=== PATIENT | male | born 1980 | race Caucasian/White ===

== ENCOUNTER 2023-05-28 18:59 | Emergency (ER) | payer OTHER, SELFPAY ==
[2023-05-28] VITALS (17 sets, daily range): BP systolic 86–133; BP diastolic 65–95; PULSE 86–114; RESP 17–24; TEMP 36.9–37.1; O2SAT 94–100; BMI 24.5
--- NOTE | 2023-05-28 19:21 | ED.GENADULT ---
HPI - General Adult General Chief complaint: Fever Stated complaint: fever, weakness, bacterial infection Time Seen by Provider: 05/28/23 19:13 History of Present Illness HPI narrative: This 43-year-old male comes here from [facility] because of generalized malaise and fever over the past 4 days or so. He was seen in [facility] Emergency Room last evening at which time nasal pharyngeal swab Ng returns negative for COVID, influenza, and RSV. He has had fevers with myalgias and a cough. He does smoke a half a pack a day. At the clinic he had a chest x-ray which is negative. His blood was checked and returns with a white blood cell count a bit greater than 15,000 with a left shift. An IV was established at which time he had vasovagal syncope. He did receive a L of fluids there. He is sent here because the doctor there thought that he was not looking good enough to go home. The patient was bit by a dog in his right hand about 5 days ago and it was soon after this that he started having symptoms. He did not have a repair of this wound on his hand. There is no particular erythema or drainage or other sign of infection of the site of this wound. Related Data Home Medications Medication Instructions Recorded Confirmed dextroamphetamine-amphetamine 30 30 mg PO TID 05/28/23 05/28/23 mg tablet (Adderall) Allergies Allergy/AdvReac Type Severity Reaction Status Date / Time No Known Drug Allergies Allergy Verified 05/28/23 16:14 Review of Systems Status of ROS: Reports: 10 or more systems reviewed and unremarkable except as noted in History and below Narrative: Constitutional: No weight gain or loss. He reports fevers. Eyes: No discharge. No vision changes. HENT: No congestion, no sore throat, no ear pain. Cardiovascular: No chest pain, no palpitations. Respiratory: No shortness of breath, no wheezes. He does have a cough. Gastrointestinal: No abdominal pain, no vomiting, no diarrhea. Genitourinary: No dysuria, no hematuria. Musculoskeletal: Normal range of motion. Dog bite to the thenar aspect of the palm of his right hand. Skin: No rashes, no pruritis. Neurological: No dizziness, weakness, sensory change, speech change. Endo/Heme/Allergies: No bruising or bleeding. No polydipsia. Pysch: no suicidality, no anxiety, no insomnia. All other systems reviewed and are negative. [facility] Medical History (Updated 05/28/23 @ 20:08 by Du James MD) Fever ?R50.9 - Fever, unspecified (ICD-10) Social History Smoking Status: Current every day smoker Second hand tobacco smoke exposure: Yes How often do you have a drink containing alcohol: never How often do you have six or more drinks on one occasion: Never AUDIT-C Alcohol total score: 0 Non-prescribed substance use: denies use Exam Narrative: Exam Narrative: Constitutional: Well-developed, well-nourished. He appears to feel poorly. HEENT: Normocephalic, atraumatic. Neck: Normal range of motion. Nontender. Supple. Heart: Regular. No murmurs. Tachycardia, rate 105. Intact distal pulses. Lungs: Clear to auscultation. No chest discomfort. No wheezes, rhonchi, or rales. Abdomen: Normal bowel sounds. Nontender. No rebound tenderness. Genitalia: Deferred. Back: No midline tenderness. Normal range of motion. Extremities: Normal range of motion. 2 cm laceration on the thenar aspect of the palm of his right hand from a dog bite that occurred for 5 days ago. No purulent drainage or surrounding erythema. Skin: Intact. No rash. Warm. No erythema or pallor. Neurologic: No altered sensation. No weakness. Alert and oriented. Psychiatric: No suicidality. No anxiety or depression. No insomnia. Nursing notes and vitals signs are reviewed. Const: Vital Signs, click to edit/add: Vital Signs - 24 hr 05/28/23 19:00 05/28/23 19:09 Temperature 98.4 F 98.4 F Pulse Rate [Right Pulse Oximeter] 105 H 105 H Respiratory Rate 22 22 Blood Pressure [Ri ght Arm] 105/67 Blood Pressure [Ri ght Upper Arm] 103/65 Pulse Oximetry 100 100 Oxygen Delivery Me thod Room Air Room Air Course Vital Signs Vital signs: Initial Vital Signs Temperature 98.4 F 05/28/23 19:00 Temperature Source Temporal Artery Scan 05/28/23 19:00 Pulse Rate 105 H 05/28/23 19:00 Respiratory Rate 22 05/28/23 19:00 Respiratory Effort Normal, Spontaneous, Non-Labored 05/28/23 19:00 Respiratory Depth Normal 05/28/23 19:00 Respiratory Pattern Normal 05/28/23 19:00 Blood Pressure 105/67 05/28/23 19:00 Blood Pressure Mean 79 05/28/23 19:00 Blood Pressure Position Sitting 05/28/23 19:00 Pulse Oximetry 100 05/28/23 19:00 Oxygen Delivery Method Room Air 05/28/23 19:00 Sepsis Recent Fever Within 48 Hours Yes 05/28/23 19:00 Sepsis New/Unexplained Change in Mental Status No 05/28/23 19:00 Sepsis Action Taken by Nursing No Action Required 05/28/23 19:00 Vital Signs Temperature 98.4 F 05/28/23 19:00 Pulse Rate 105 H 05/28/23 19:00 Respiratory Rate 22 05/28/23 19:00 Blood Pressure 105/67 05/28/23 19:00 Pulse Oximetry 100 05/28/23 19:00 Oxygen Delivery Method Room Air 05/28/23 19:00 Temperature 98.4 F 05/28/23 19:09 Pulse Rate 105 H 05/28/23 19:09 Respiratory Rate 22 05/28/23 19:09 Blood Pressure 103/65 05/28/23 19:09 Pulse Oximetry 100 05/28/23 19:09 Oxygen Delivery Method Room Air 05/28/23 19:09 Medications Administered Medications: Generic Name Dose Route Start Last Admin Trade Name Freq PRN Reason Stop Dose Admin Sodium Chloride 1,000 mls @ 1,000 mls/hr 05/28/23 19:45 05/28/23 19:38 0.9 % Sodium Chloride 1000 Ml IV 05/28/23 20:44 1,000 mls/hr .Q1H WEI Administration Discontinued Medications Generic Name Dose Route Start Last Admin Trade Name Freq PRN Reason Stop Dose Admin Piperacillin Sod/Tazobactam 100 mls @ 200 mls/hr 05/28/23 19:18 05/28/23 19:39 Sod 3.375 gm/ Sodium Chloride IVPB 05/28/23 19:19 200 mls/hr ONCE ONE Administration Medical Decision Making MDM Narrative Medical decision making narrative: This patient is sent here for further evaluation and treatment from a clinic visit that he was at prior to arrival. He arrives here with normal temperature but reports having fevers over the last 5 days. He does arrive with pulse at 105 beats per minute and blood pressure at 103/65. An IV was established where he received a L of normal saline. Lab results were acquired at the clinic but this did not include blood culture or lactate level. These labs were ordered along with a dose of Zosyn to be administered after cultures are acquired. His lactate returned significantly elevated at 7.5. The patient did receive a L of normal saline at clinic just prior to arrival. He received 2 more L which is close to 30 milliliters/kilogram rehydration. This patient would benefit from inpatient evaluation and treatment but no beds are available currently both here and in surrounding hospitals. Care for this patient will be transferred to the [facility] physician for further evaluation and treatment. Lab Data Labs: Lab Results 05/28/23 Range/Units 19:46 Lactate 7.5 H* (0.5-1.9) mmol/L Discharge Plan Discharge Clinical Impression: Fever, Sepsis Prescriptions: No Action dextroamphetamine-amphetamine [Adderall] 30 mg tablet 30 mg PO TID Rx Instructions: administer doses at least 4-6 hours apart Follow Up/Referrals: Provider,Not a Local [Primary Care Provider] -
[2023-05-28] MEDS: 0.9 % SODIUM CHLORIDE 1000 ml 1,000 ML IV ×2 (19:38→20:00)
[2023-05-28] MEDS: PIPERACILLIN/TAZOBACTAM 3.375 GM in 0.9 % SODIUM CHLORIDE Mini-bag 100 ML IVPB (19:39)
[2023-05-28 19:56] LABS: Lactate* 7.5 mmol/L (0.5-1.9)
[2023-05-28] MEDS: ONDANSETRON 2 MG/ML inj 4 MG IVP (20:15)
--- NOTE | 2023-05-28 20:21 | CRLHL7_ITS ---
For Patients: As a result of the Cures Act, medical imaging exams and procedure reports are released immediately into your electronic medical record. You may view this report before your referring provider. If you have questions, please contact your health care provider. INDICATION: Back pain, fever, chills, abdominal pain, fever chills TECHNIQUE: CT Abdomen and pelvis with i.v. contrast. Coronal and sagittal reformats were obtained. CONTRAST: 95 mL Isovue 370 COMPARISON: None FINDINGS: Liver: Unremarkable. Spleen: Unremarkable. Pancreas: Unremarkable. Gallbladder: Mild nonspecific gallbladder wall edema is noted. Kidney: There is a punctate 1 mm stone seen in the lower pole of the left kidney. Adrenal: Unremarkable. Bowel: Moderate diverticulosis of the sigmoid colon is present with no evidence of diverticulitis. The appendix is best seen on coronal images 55-69. The appendix is normal in appearance and size. Vascular: Unremarkable. Lymph: Unremarkable. Peritoneum: Unremarkable. No pneumoperitoneum is seen. No significant ascites is noted. Pelvis: Unremarkable. Soft tissue: Unremarkable. Bone: Unremarkable for age. IMPRESSION: 1. Mild nonspecific gallbladder wall edema is noted. Dictated by Moises Lugo MD @ 05/28/2023 10:13:03 PM Please note that all CT scans at this facility use dose modulation, iterative reconstruction, and/or weight-based dosing when appropriate to reduce radiation dose to as low as reasonably achievable. Dictated by: Moises Lugo MD @ 05/28/2023 22:15:55 (Electronically Signed)
--- NOTE | 2023-05-28 20:21 | CRLHL7_ITS ---
For Patients: As a result of the Century Cures Act, medical imaging exams and procedure reports are released immediately into your electronic medical record. You may view this report before your referring provider. If you have questions, please contact your health care provider. INDICATION: Back chest pain, fever, chills, abdominal pain, back pain TECHNIQUE: CT chest with i.v. contrast using pulmonary angiographic technique. Coronal and sagittal reformats were obtained. CONTRAST: 95 mL Isovue 370 COMPARISON: None FINDINGS: Cardiovascular: The pulmonary arteries are unremarkable in enhancement with no evidence of acute pulmonary embolism. The heart has an unremarkable appearance and size. No sign of aneurysm in the thoracic aorta. Mediastinum: No mass or adenopathy seen. Lung: Dependent subpleural ground-glass opacities are present bilaterally. Mild subpleural septal thickening seen in the lower lung zones. Mild peribronchial cuffing is seen in the lower lobes bilaterally. Pleura and pericardium: No sign of pleural effusion seen. No significant pericardial effusion is present. Chest wall and axilla: No mass or adenopathy seen. Bone: Unremarkable for age. IMPRESSIONS: 1. No CT evidence of acute pulmonary emboli seen. 2. Dependent subpleural ground-glass opacities are present bilaterally. Mild subpleural septal thickening seen in the lower lung zones. Clinical correlation is recommended to exclude mild interstitial edema or interstitial pneumonia. Dictated by Moises Lugo MD @ 05/28/2023 10:10:28 PM Please note that all CT scans at this facility use dose modulation, iterative reconstruction, and/or weight-based dosing when appropriate to reduce radiation dose to as low as reasonably achievable. Dictated by: Moises Lugo MD @ 05/28/2023 22:10:33 (Electronically Signed)
[2023-05-28 20:33] LABS: Chloride* 101 mmol/L (96-114)
[2023-05-28 20:34] LABS: Potassium* 3.9 mmol/L (3.6-5.1); Sodium* 134 mmol/L (135-149)
[2023-05-28 20:36] LABS: Creatinine* 2.2 mg/dL (0.5-1.5); Estimated Glomerular Filt Rate 37 ml/min
[2023-05-28 20:37] LABS: Anion Gap 20 mEq/L (7-15); Blood Urea Nitrogen* 27 mg/dL (5-24); Carbon Dioxide* 13 mmol/L (20-32); Glucose* 84 mg/dL (60-115)
[2023-05-28 20:38] LABS: Calcium* 7.8 mg/dL (8.4-10.6)
[2023-05-28 20:40] LABS: C Reactive Protein* 7.2 mg/dL (0.5-1.0)
[2023-05-28] MEDS: KETOROLAC 30 MG/ML inj IVP (20:43)
[2023-05-28] MEDS: ACETAMINOPHEN 500 MG TABLET 1000 MG PO (20:44)
[2023-05-28 21:02] LABS: Lactate* 7.7 mmol/L (0.5-1.9)
[2023-05-28] MEDS: LACTATED RINGERS 1000 ML 1,000 ML IV (21:06)
[2023-05-28 21:12] LABS: PCR FLU A Negative PCR FLU A (Negative); PCR FLU B Negative PCR FLU B (Negative); PCR RSV Negative PCR RSV (Negative)
[2023-05-28 21:21] LABS: Albumin* 2.7 g/dL (3.3-5.0)
[2023-05-28 21:24] LABS: Alanine Aminotransferase* 51 U/L (4-50); Alkaline Phosphatase* 99 U/L (40-150); Aspartate Amino Transferase* 66 U/L (12-35); Bilirubin Direct* 1.1 mg/dL (0.0-0.5); Bilirubin Total* 1.9 mg/dL (0.1-1.5); Total Protein* 5.5 g/dL (6.0-8.3)
[2023-05-28 21:27] LABS: SARS PCR* Negative SARS-CoV-2 (Negative)
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
[2023-05-28 21:56] LABS: HCO3 VBG 13 mmol/L (21-28); PCO2 VBG 39 mmHG (40-50); PO2 VBG 44.4 mmHG (25-47)
[2023-05-28 21:57] LABS: pH VBG 7.149 (7.32-7.43)
[2023-05-28] MEDS: LACTATED RINGERS 1000 ML 1,000 ML 250 ML IV (22:20)
[2023-05-28] MEDS: DOXYCYCLINE HYCLATE 100 MG in 0.9 % SODIUM CHLORIDE Mini-bag 100 ML IVPB (23:30)
[2023-05-29 00:53] VITALS: BP 103/78; PULSE 98; RESP 22; TEMP 37.1; O2SAT 96
[2023-05-29 01:11] VITALS: BP 103/78; PULSE 98; RESP 22; TEMP 37.1
--- NOTE | 2023-05-31 00:14 | ED.NURSE ---
Received notice from lab that one blood culture drawn was positive for gram negative rods. Called [facility]'s ICU and updated nurse caring for patient currently of this positive test result.
== END 2023-05-29 01:14 | disposition short-term general hospital (02) ==
PROVIDERS: Emergency Medicine Emergency Medical Services; Family Medicine; Emergency Provider Family Medicine
DX: I95.9 Hypotension, unspecified (principal); A41.89 Other specified sepsis
CPT/HCPCS: 36415; 71275; 74177; 80048; 80076; 81001; 82803; 83605; 84145; 86140; 87040; 87077; 87185; 87186; 87449; 87631; 87899; 94761; 96365; 96366; 96375; 99285; 99291; A9270; J1885; J2405; J2543; J3370; J7030; J7120; Q9967

== ENCOUNTER 2023-05-29 00:58 | Outpatient (CLI) | payer OTHER, SELFPAY | END 2023-05-29 00:59 | disposition home or self-care (01) | LOC: AMB 05-30 16:22 | PROVIDERS: Visit Provider Family Medicine | DX: A41.9 Sepsis, unspecified organism (principal) | CPT/HCPCS: A0425; A0434 ==